=== PATIENT | male | born 1990 | race Caucasian/White ===

== ENCOUNTER 2017-05-15 15:36 | Emergency (ER) | payer OTHER ==
[~2017-05-15] VITALS: Ht 167.6 cm; Wt 79.2 kg
[2017-05-15] MEDS ORDERED: MEDROL DOSEPAK4 MG PO (19:30)
[2017-05-15] MEDS ORDERED: LIDODERM 5% P1 PATCH TD (19:30)
[2017-05-15] MEDS ORDERED: FLEXERIL10 MG PO (19:30)
[2017-05-15 19:47] VITALS: BP 127/80
== END 2017-05-15 19:51 | disposition home or self-care (01) ==
LOC: EME 15:36
DX: G89.29 Other chronic pain (principal); M54.5 Low back pain; M62.830 Muscle spasm of back; Z88.6 Allergy status to analgesic agent
CPT/HCPCS: 99281; 99284

== ENCOUNTER 2017-10-14 16:50 | Emergency (ER) | payer OTHER ==
[~2017-10-14] VITALS: Ht 167.6 cm; Wt 83.4 kg
[~2017-10-14 16:50] MED LIST: FLEXERIL10 MG PO; LIDODERM 5% P1 PATCH TD; MEDROL DOSEPAK4 MG PO
[2017-10-14] MEDS ORDERED: LIDODERM 5% P1 PATCH TD (17:19)
[2017-10-14] MEDS ORDERED: MEDROL DOSEPAK4 MG PO (17:19)
[2017-10-14] MEDS ORDERED: FLEXERIL10 MG PO (17:19)
[2017-10-14 17:37] LABS: APPEARANCE CLEAR ((CLEAR)); BILIRUBIN NEGATIVE; BLOOD NEGATIVE; COLOR YELLOW ((YELLOW)); GLUCOSE (STRIP) NEGATIVE; KETONES NEGATIVE; LEUKOCYTES NEGATIVE; NITRITE NEGATIVE; PROTEIN (STRIP) 30; SPECIFIC GRAVITY 1.032 (1.000-1.030); UROBILINOGEN 0.2 MG/DL (0.2-1.0)
[2017-10-14 18:46] VITALS: BP 123/86
== END 2017-10-14 18:47 | disposition home or self-care (01) ==
LOC: EME 16:50
PROVIDERS: Emergency Medicine
DX: M54.5 Low back pain (principal); Z88.6 Allergy status to analgesic agent
CPT/HCPCS: 81003; 99281; 99284